=== PATIENT | male | born 1990 | race Caucasian/White ===

== ENCOUNTER 2017-01-06 11:29 | Emergency (ER) | payer OTHER ==
[~2017-01-06] VITALS: Ht 177.8 cm; Wt 73.1 kg
[2017-01-06 12:05] LABS: HEMATOCRIT 47.2 % (38.0-50.0); MCH 32.6 PG (29.0-34.0); MCHC 35.4 G/DL (30.0-36.0); MEAN PLAT.VOLUME 10.7 uM^3 (9.0-12.4); PLATELET COUNT 200 K/uL (156-360); RBC DIS.WIDTH-CV 11.7 % (11.8-14.6); RBC DIS.WIDTH-SD 39.6 % (39-53); RED BLOOD COUNT 5.13 M/uL (4.00-5.50); WHITE BLOOD COUNT 5.4 K/uL (4.1-10.2)
[2017-01-06 12:29] LABS: CHLORIDE 107 mEq/L (99-109); SODIUM 140 mEq/L (136-147)
[2017-01-06 12:31] LABS: GLUCOSE 92 mg/dL (70-99)
[2017-01-06 12:32] LABS: ANION GAP 8 MEQ/L (2-14)
[2017-01-06 12:33] LABS: ADD MIUA? NO; BILIRUBIN NEGATIVE; BLOOD NEGATIVE; COLOR YELLOW ((YELLOW)); GLUCOSE (STRIP) NEGATIVE; KETONES NEGATIVE; LEUKOCYTES NEGATIVE; NITRITE NEGATIVE; PROTEIN (STRIP) 30; SPECIFIC GRAVITY 1.027 (1.000-1.030); UCUL ADDED? NO; UROBILINOGEN 0.2 MG/DL (0.2-1.0)
[2017-01-06 12:33] LABS: TOTAL BILIRUBIN 3.5 mg/dL (0.0-1.0)
[2017-01-06 12:34] LABS: ALKALINE PHOSPHATASE 50 IU/L (3-129)
[2017-01-06 12:35] LABS: GFR ESTIMATE (CALCULATED) > 59 mL/min/
[2017-01-06 12:36] LABS: UREA NITROGEN (BUN) 13 mg/dL (9-23)
[2017-01-06 14:49] LABS: LIPASE 56 U/L (1.0-51.0)
[2017-01-06] MEDS ORDERED: PRILOSEC20 MG PO (16:09)
[2017-01-06 16:15] VITALS: BP 138/78
== END 2017-01-06 16:20 | disposition home or self-care (01) ==
LOC: EME 11:29
DX: R10.10 Upper abdominal pain, unspecified (principal); J02.9 Acute pharyngitis, unspecified; R63.4 Abnormal weight loss; Z68.23 Body mass index [BMI] 23.0-23.9, adult; Z87.891 Personal history of nicotine dependence
CPT/HCPCS: 76705; 80053; 81003; 83690; 85027; 99281; 99283